=== PATIENT | female | born 2000 | race African-American/Black ===

== ENCOUNTER 2021-12-30 16:07 | Observation (INO) | payer MEDICAID ==
[~2021-12-30] VITALS: Ht 154.9 cm; Wt 74.4 kg
[2021-12-30 18:25] LABS: Eosinophils # (auto) 0.2 10 ^3/uL (0-0.8); Hemoglobin 9.5 g/dL (12.2-16.2); White Blood Cell 13.8 10^3/uL (4.4-10.8)
[2021-12-30 18:27] LABS: Basophils # (auto) 0.1 10 ^3/uL (0-0.2); Basophils % (auto) 0.5 % (0.0-2.0); Eosinophils % (auto) 1.4 % (0.0-7.0); Hematocrit 30.9 % (36.0-46.0); Lymphocytes # (auto) 2.3 10 ^3/uL (0.4-5.4); Lymphocytes % (auto) 16.3 % (10.0-50.0); Mean Corpuscular Hemoglobin 24.2 pg (28.0-32.0); Mean Corpuscular Hgb Conc. 30.7 g/dL (32.0-36.0); Monocytes % (auto) 7.4 % (0.0-12.0); Neutrophils # (auto) 10.3 10 ^3/uL (1.6-8.6); Neutrophils % (auto) 74.4 % (37.0-80.0); Nucleated Red Blood Cells % 0.2 %; Red Blood Cells 3.91 10^6/uL (4.0-5.20); Red Cell Distribution Width 23.3 % (11.8-14.3)
[2021-12-30] MEDS ORDERED: hydrALAZINE HCL 20 MG/ML VL IV ONE (18:30)
[2021-12-30 18:31] LABS: Urine Bacteria FEW /hpf (None Seen); Urine Blood 1+ /uL (Negative); Urine Hyaline Cast FEW /lpf (0 - 2); Urine Mucus FEW (None Seen); Urine WBC 6 /hpf (0 - 5)
[2021-12-30 18:34] LABS: Albumin 1.9 g/dL (3.4-5.0); Calcium 8.4 mg/dL (8.5-10.1); Potassium 3.9 mmol/L (3.5-5.1)
[2021-12-30 18:39] LABS: BUN/Creatinine Ratio 15.4; Bilirubin, Total 0.2 mg/dL (0.2-1.0); INR 0.83 (0.9-1.15); Partial Thromboplastin Time 25.7 sec (24.6-33.4); Total Protein 6.2 g/dL (6.4-8.2); Uric Acid 6.6 mg/dL (2.6-6.0)
[2021-12-30 18:43] LABS: Urine Specific Gravity 1.049 (1.001-1.035)
[2021-12-30] MEDS ORDERED: ACETAMINOPHEN 325 MG TAB PO PRN (18:45)
[2021-12-30 18:46] LABS: Creatinine, Urine 287 mg/dL (30.0-125.0)
[2021-12-30] MEDS ORDERED: PREN-96 PO (19:08)
[2021-12-30] MEDS ORDERED: FERR-7 PO (19:10)
[2021-12-30] MEDS ORDERED: LABETALOL HCL 200 MG TAB PO ONE (19:15)
[2021-12-30] MEDS ORDERED: LABETALOL HCL 200 MG TAB PO SCH (22:00)
[2021-12-30 22:36] LABS: Protein, Urine > 460 mg/dL (0.0-11.9)
[2022-01-01] MEDS ORDERED: NIF10C PO (16:05)
== END 2021-12-31 00:50 | disposition home or self-care (01) ==
LOC: LDRP 16:07
PROVIDERS: ADMIT Obstetrics & Gynecology; ATTEND Obstetrics & Gynecology
DX: O36.8130 Decreased fetal movements, third trimester, not applicable or unspecified (principal); O13.3 Gestational [pregnancy-induced] hypertension without significant proteinuria, third trimester; O26.893 Other specified pregnancy related conditions, third trimester; R51.9 Headache, unspecified; Z3A.29 29 weeks gestation of pregnancy; Z79.899 Other long term (current) drug therapy
CPT/HCPCS: 36415; 59025; 76805; 80053; 81001; 81002; 82570; 84156; 84550; 85025; 85610; 85730; 96361; 96374; G0378; J0360; 96360; 96375

== ENCOUNTER 2022-01-01 07:45 | Inpatient (IN) | payer MEDICAID ==
[~2022-01-01] VITALS: Ht 154.9 cm; Wt 74.4 kg
[~2022-01-01 07:45] MED LIST: FERR-7 PO; PREN-96 PO
[2022-01-01] MEDS ORDERED: MAGNESIUM SULFATE 40MG/ML 1,000 ML IV SCH (08:15)
[2022-01-01] MEDS ORDERED: LORazepam 2MG/ML-1ML VIAL IV ONE (08:15)
[2022-01-01] MEDS ORDERED: MAGNESIUM SULFATE 100 ML IV ONE (08:15)
[2022-01-01] MEDS ORDERED: BETAMETHASONE ACET (30mg/5ml) 5ml Vial 6mg/ml IM ONE (08:30)
[2022-01-01] MEDS ORDERED: LORazepam 2MG/ML-1ML VIAL IV PRN (08:30)
[2022-01-01] MEDS ORDERED: hydrALAZINE HCL 20 MG/ML VL IV PRN (09:00)
[2022-01-01 09:08] LABS: Urine Bacteria NONE SEEN /hpf (None Seen); Urine Blood 1+ /uL (Negative); Urine Mucus FEW (None Seen); Urine Specific Gravity 1.027 (1.001-1.035); Urine WBC <1 /hpf (0 - 5)
[2022-01-01 09:10] LABS: Eosinophils # (auto) 0.2 10 ^3/uL (0-0.8); Mean Corpuscular Volume 79.6 fL (80.0-100.0); Neutrophils # (auto) 10.5 10 ^3/uL (1.6-8.6); Nucleated Red Blood Cells % 0.2 %
[2022-01-01 09:11] LABS: Basophils # (auto) 0 10 ^3/uL (0-0.2); Basophils % (auto) 0.4 % (0.0-2.0); Eosinophils % (auto) 1.4 % (0.0-7.0); Hematocrit 31.6 % (36.0-46.0); Hemoglobin 9.6 g/dL (12.2-16.2); Lymphocytes % (auto) 14.9 % (10.0-50.0); Mean Corpuscular Hemoglobin 24.2 pg (28.0-32.0); Mean Corpuscular Hgb Conc. 30.4 g/dL (32.0-36.0); Monocytes # (auto) 0.8 10 ^3/uL (0-1.3); Monocytes % (auto) 6.1 % (0.0-12.0); Neutrophils % (auto) 77.2 % (37.0-80.0); Red Blood Cells 3.96 10^6/uL (4.0-5.20); Red Cell Distribution Width 24.5 % (11.8-14.3); White Blood Cell 13.6 10^3/uL (4.4-10.8)
[2022-01-01 09:27] LABS: INR 0.84 (0.9-1.15); Partial Thromboplastin Time 26.8 sec (24.6-33.4)
[2022-01-01 09:30] LABS: Albumin 1.7 g/dL (3.4-5.0); Calcium 8.1 mg/dL (8.5-10.1); Potassium 3.9 mmol/L (3.5-5.1); Uric Acid 6.5 mg/dL (2.6-6.0)
[2022-01-01 09:33] LABS: BUN/Creatinine Ratio 11.8; Bilirubin, Total 0.1 mg/dL (0.2-1.0); Total Protein 5.9 g/dL (6.4-8.2)
[2022-01-01] MEDS ORDERED: NIF10C PO (16:05)
== END 2022-01-01 16:44 | disposition short-term general hospital (02) | DRG 566 ==
LOC: UNDOADMOB 07:45 → LDRP 07:45 → OBSVTOIN 08:15 → INTOOBSV 08:15
PROVIDERS: ADMIT Obstetrics & Gynecology Obstetrics; ATTEND Obstetrics & Gynecology Obstetrics
DX: O14.13 Severe pre-eclampsia, third trimester (principal); D56.3 Thalassemia minor; Z20.822 Contact with and (suspected) exposure to COVID-19; Z3A.30 30 weeks gestation of pregnancy
CPT/HCPCS: 36415; 59025; 80053; 81001; 81002; 82570; 83735; 84156; 84550; 85025; 85610; 85730; 96360; 96361; 96365; 96366; 96372; G0378